=== PATIENT | male | born 1940 | race Caucasian/White ===

== ENCOUNTER 2021-04-02 11:12 | Emergency (ER) | payer MEDICARE, OTHER, SELFPAY ==
[2021-04-02] VITALS (9 sets, daily range): BP systolic 188–214; BP diastolic 81–98; PULSE 57–63; RESP 14; TEMP 36.6–37.1; O2SAT 97–99; BMI 26.8
--- NOTE | 2021-04-02 11:57 | PC.NURSE ---
pt hit head on the window of a car injuring R side of forehead. jagged lac with dsd in place edges well approximated. no active bleeding at this time. pt cannot remember when he last had TDAP
--- NOTE | 2021-04-02 12:05 | ED_ITS ---
HPI - Skin/Abscess/Foreign Bdy <RODRÍGUEZ Shaffer - Last Filed: 04/02/21 13:45> General Chief complaint: Skin/Abscess/Foreign Body Stated complaint: hit head on sharp corner Time Seen by Provider: 04/02/21 12:05 Source: patient Mode of arrival: Ambulatory Limitations: no limitations History of Present Illness HPI narrative: 81-year-old male with history of hypertension presents to the ED after he states he walked into an open door on a vehicle cutting his right temporal region. He reports that he missed a step and fell forward causing his tripping incident, he did notice that the step was there, states it was camouflaged. He denies losing consciousness, dizziness, or having any visual changes. He denies any other injury, he denies pain at this time, bleeding is controlled. Patient denies being on any blood thinners. He states his last tetanus was in 2018. Related Data Allergies Allergy/AdvReac Type Severity Reaction Status Date / Time No Known Drug Allergies Allergy Verified 04/02/21 11:30 Review of Systems <RODRÍGUEZ Shaffer - Last Filed: 04/02/21 13:45> Review of Systems Narrative: General: denies fever, chills Head/Neck: denies headache, neck pain Eyes: denies visual changes, eye pain Cardio: denies chest pain, palpitations Respiratory: denies shortness of breath, cough GI: denies abdominal pain, nausea, vomiting, or diarrhea : denies dysuria, hematuria MSK: denies joint pain, muscle weakness Skin: denies rash, itching, lac to right forehead/temporal region Neuro: denies numbness, tingling, imbalance, lightheadedness Patient History <RODRÍGUEZ Shaffer - Last Filed: 04/02/21 13:45> Social History Smoking Status: Never smoker Smoking Status: Never smoker alcohol intake frequency: 0-2 drinks per day Substance Use Type: does not use Exam <RODRÍGUEZ Shaffer - Last Filed: 04/02/21 13:45> Narrative Exam Narrative: Independently reviewed vitals signs and nursing notes. General: Awake, alert, nontoxic, no cardiorespiratory distress Head/Neck: Atraumatic, neck full range of motion Eyes: EOMI, conjunctiva normal Nose: nares patent, no rhinorrhea Mouth/Throat: moist mucus membranes, posterior pharynx normal, no oral lesions Cardio: Regular rate and rhythm, no peripheral edema Respiratory: respirations unlabored without wheezing, stridor, or rales. No retractions. GI: Abdomen soft, nontender MSK: Moves all extremities, neurovascularly intact Skin: Normal capillary refill, no rash, linear right forehead/temporal laceration approximately 2 in in length and well approximated, bleeding is controlled, curved caudal end Neuro: Normal speech and cognition, normal gait Initial Vital Signs Initial Vital Signs: Vital Signs Temperature 97.9 F 04/02/21 11:24 Pulse Rate 60 04/02/21 11:24 Respiratory Rate 14 04/02/21 11:24 Blood Pressure 208/97 H 04/02/21 11:24 Pulse Oximetry 99 04/02/21 11:24 <Karina Rai DO - Last Filed: 04/03/21 08:12> Initial Vital Signs Initial Vital Signs: Vital Signs Temperature 97.9 F 04/02/21 11:24 Pulse Rate 60 04/02/21 11:24 Respiratory Rate 14 04/02/21 11:24 Blood Pressure 208/97 H 04/02/21 11:24 Pulse Oximetry 99 04/02/21 11:24 Procedures <RODRÍGUEZ Shaffer - Last Filed: 04/02/21 13:45> Laceration Repair Laceration 1: Time of procedure: 12:30 Site: face and other (temporal region, lateral to eyebrow) Side (If applicable): right Size (cm): 5 Description: linear and clean Depth: simple, single layer Local Anesthetic: with epi Amount of anesthesia used (mL): 1.0 Pre-repair: wound explored and irrigated extensively Skin layer closed with: nylon Size (cm): 5-0 and 6-0 Number of sutures: 9 Technique: simple, interrupted Course <RODRÍGUEZ Shaffer - Last Filed: 04/02/21 13:45> Orders Ordered: Discontinued Medications Bacitracin (Bacitracin Oint 0.9 Gm Pckt) 1 applic TOP NOW ONE Stop: 04/02/21 13:13 Lidocaine/Epinephrine (Lidocaine 1% W/Epi) 1 ml SUBCUT NOW ONE Stop: 04/02/21 12:19 Last Admin: 04/02/21 12:40 Dose: 1 ml Documented by: RANDELL Vital Signs Vital signs: Vital Signs - 8 hr 04/02/21 11:24 04/02/21 11:46 04/02/21 11:51 Temperature 97.9 F 98.8 F Pulse Rate 60 60 63 Respiratory Rate 14 Blood Pressure 208/97 H 214/98 H Pulse Oximetry 99 98 98 <Karina Rai DO - Last Filed: 04/03/21 08:12> Orders Ordered: Discontinued Medications Bacitracin (Bacitracin Oint 0.9 Gm Pckt) 1 applic TOP NOW ONE Stop: 04/02/21 13:13 Lidocaine/Epinephrine (Lidocaine 1% W/Epi) 1 ml SUBCUT NOW ONE Stop: 04/02/21 12:19 Last Admin: 04/02/21 12:40 Dose: 1 ml Documented by: RANDELL Vital Signs Vital signs: Vital Signs - 8 hr 04/02/21 11:24 04/02/21 11:46 04/02/21 11:51 Temperature 97.9 F 98.8 F Pulse Rate 60 60 63 Respiratory Rate 14 Blood Pressure 208/97 H 214/98 H Pulse Oximetry 99 98 98 MDM - Skin/Abscess/Foreign Bdy <RODRÍGUEZ Shaffer - Last Filed: 04/02/21 13:45> MDM Narrative Medical decision making narrative: 81-year-old male presents to the ED after he missed a step and tripped into an open truck door cutting the right side of his forehead. He had an approximate 2 inch linear laceration and it was cleaned with normal saline after numbing with 1% lidocaine with epi. No foreign debris was found, area was irrigated, and wound edges were approximated with a combination of 5.0 and 6.0 Ethilon sutures, 9 in total. This is most likely a simple skin laceration without signs of infection. Initial ddx to include but not limited to mild concussion with skin laceration. Patient was hypertensive during exam and is on multiple antihypertensives. He reports this is most likely due to being in the emergency department right now. On recheck at discharge his blood pressure was 188 systolic and diastolic was less than 100. Patient is appropriate and amenable to discharge home. Vital signs are stable on repeat examination is unremarkable. Patient has been informed of results. Patient has been given strict return to ER precautions for any new or worsening symptoms. Patient understands to follow up closely with outpatient providers as instructed. Patient understands plan and agrees to discharge home. All questions and concerns answered at this time. Discharge Plan Departure Patient Disposition: Home Clinical Impression: Facial laceration Qualifiers: Encounter type: initial encounter Qualified Code(s): S01.81XA - Laceration without foreign body of other part of head, initial encounter Instructions: DI for Laceration Repair Activity Restrictions/Additional Instructions: It was nice to meet you today. Four your facial laceration, please have sutures removed in 5 days on 04/07 2021. Using OT ear PCP or the walk-in clinic for this or come back to the emergency department if needed. Please watch for signs and symptoms of infection ie: Redness, swelling, eye pain, changes with vision, drainage, and if you developed these or a fever return to the emergency department immediately. Keep it covered with a Band-Aid and antibiotic ointment. You received 9 sutures today. *What to do: *Please continue to take your regular medications as directed. [ ] New medication prescriptions sent to your pharmacy: [ ] [ ] New medication written as a paper prescription [ x] No new medications given *Please follow up with your primary care provider in 2-3 days, call for an appointment. Let them know you were seen in the Emergency Department and that we ask that you be seen in follow up. We will electronically transmit a record of today's note if your PCP is in our system *If you do not have a primary care provider please contact the [facility] Resource line at [phone]. They will ask some questions about your medical history and help get you set up with a doctor in the community. *Return to Emergency Department if you should have any new, worsening or concerning symptoms, such as [fever greater than 101F, chills, worsening pain, persistent vomiting or other bothersome symptoms] <Karina Rai, - Last Filed: 04/03/21 08:12> Cosign ED Attending Susan Attestation: [facility] was immediately available [facility]. Documentation has been reviewed. I agree with assessment and plan.
[2021-04-02] MEDS: LIDOCAINE 1% W/EPI 1 ML SUBCUT (12:40)
== END 2021-04-02 13:41 | disposition home or self-care (01) ==
PROVIDERS: Emergency Provider Nurse Practitioner Critical Care Medicine
DX: S01.81XA Laceration without foreign body of other part of head, initial encounter (principal); W22.8XXA Striking against or struck by other objects, initial encounter
CPT/HCPCS: 12013; 99281; 99283

== ENCOUNTER → 2024-12-31 13:42 | Outpatient (CLI) | payer MEDICARE, SELFPAY ==
[2024-12-31 14:28] LABS: Hematocrit 40.5 % (41-53); Mean Corpuscular HGB Conc 34.6 % (30-36); Mean Corpuscular Volume 98.2 fL (80-100); Platelet Count 221 X10^3/uL (150-400); Red Blood Cell Count 4.13 X10^6/uL (4.5-5.9); Red Cell Distribution Width 13.5 % (11.6-14.8); White Blood Cell Count 5.8 X10^3/uL (4.5-11.0)
[2024-12-31 14:41] LABS: Alanine Aminotransferase 27 IU/L (<50); Albumin 4.4 g/dL (3.5-5.0); Albumin Globulin Ratio 1.3 (1.0-2.8); Alkaline Phosphatase 74 U/L (38-126); Aspartate Aminotransferase 37 IU/L (17-59); BUN Creatinine Ratio 26.4 (6-22); Bilirubin Total 0.8 mg/dL (0.2-1.3); Blood Urea Nitrogen 29 mg/dL (9-20); Calcium 9.2 mg/dL (8.4-10.2); Carbon Dioxide 26 mmol/L (22-32); Chloride 98 mmol/L (98-107); Cholesterol 185 mg/dL (140-199); Estimated Glomerular Filt Rate > 60 mL/min (>60); Globulin 3.4 g/dL (1.7-4.1); Glucose 130 mg/dL (70-99); HDL Cholesterol 94 mg/dL (40-60); HEMOLYSIS < 15 (0-50); LDL Cholesterol Calculated 65 mg/dL (<100); Potassium 3.8 mmol/L (3.4-5.1); Sodium 134 mmol/L (137-145); Total Protein 7.8 g/dL (6.3-8.2); Triglycerides 131 mg/dL (35-150); Uric Acid 3.7 mg/dL (3.5-8.5)
[2024-12-31 15:10] LABS: TSH w/ Reflex to FT4 6.55 uIU/mL (0.47-4.68)
[2024-12-31 15:13] LABS: Testosterone 105 ng/dL (71.8-623)
[2024-12-31 17:59] LABS: Free T4, Direct Thyroxine 0.89 ng/dL (0.78-2.19)
== END ==
PROVIDERS: PCP Internal Medicine; Referring Provider Internal Medicine; Visit Provider Internal Medicine
DX: I10 Essential (primary) hypertension (principal); N40.1 Benign prostatic hyperplasia with lower urinary tract symptoms; E78.2 Mixed hyperlipidemia; N13.8 Other obstructive and reflux uropathy; M10.9 Gout, unspecified; R79.89 Other specified abnormal findings of blood chemistry
CPT/HCPCS: 36415; 80053; 80061; 84153; 84403; 84439; 84443; 84550; 85027

== ENCOUNTER → 2025-04-10 12:02 | Outpatient (CLI) | payer MEDICARE, SELFPAY ==
[2025-04-10 13:56] LABS: TSH w/ Reflex to FT4 6.37 uIU/mL (0.47-4.68)
[2025-04-10 14:21] LABS: Free T4, Direct Thyroxine 0.85 ng/dL (0.78-2.19)
== END ==
PROVIDERS: PCP Internal Medicine; Referring Provider Internal Medicine; Visit Provider Internal Medicine
DX: E03.9 Hypothyroidism, unspecified (principal); R79.89 Other specified abnormal findings of blood chemistry
CPT/HCPCS: 36415; 84403; 84439; 84443